=== PATIENT | male | born 1945 | race Caucasian/White ===

== ENCOUNTER 2023-11-17 08:25 | Day surgery (SDC) | payer MEDICARE, BC ==
[2023-11-17] MEDS: Sodium Chloride 0.9% 10 ML Syringe FLUSH PRN (09:05)
== END 2023-11-17 10:05 | disposition home or self-care (01) ==
LOC: JP.SDS 08:25
PROVIDERS: ATTEND Ophthalmology
DX: H25.811 Combined forms of age-related cataract, right eye (principal)
CPT/HCPCS: 66984; J3490; V2632